=== PATIENT | male | born 1990 | race Caucasian/White ===

== ENCOUNTER 2018-02-06 22:19 | Emergency (ER) | payer OTHER ==
[2018-02-07 00:15] LABS: ABS Basophils 0 10^3/ul (0-0.2); ABS Lymphocytes 3.3 10^3/ul (1.0-4.8); ABS Monocytes 0.6 10^3/ul (0-0.8); ABS Neutrophils 3.2 10^3/ul (1.5-7.7); ABS Nucleated RBC 0 10^3/ul; Eosinophil % 12.1 % (0-6); Hematocrit 44 % (42-52); Hemoglobin 14.7 g/dl (14.0-18.0); Lymphocyte % 40.4 % (25-47); Mean Corpuscular HGB Conc 34 g/dl (31-36); Mean Corpuscular Hemoglobin 30 pg (27-31); Mean Corpuscular Volume 88 fL (80-94); Mean Platelet Volume 8.4 um3 (7.4-10.4); Nucleated Red Blood Cells % 0.1; Platelet Count 181 10^3/ul (150-450); Red Blood Count 4.93 10^6/ul (4.00-5.40); Red Cell Distribution Width 13 % (10.5-15)
[2018-02-07 00:35] LABS: EGFR Non-African American 72.3 (>60)
--- NOTE | 2018-02-07 00:51 | ED ---
GI/ HPI - HPI Summary HPI Summary: 27-year-old male presents with abdominal pain for the past couple months. He states he has intermittent bowel pain. He states it mostly happens after he lifts objects. He states he feels sometimes a small bulge in the area. No fevers. No nausea or vomiting. No diarrhea no constipation. He also admits occasional testicular pain. He denies any testicular pain at this time. He states that his veins feels prominently near his testicles. No abnormal penile discharge. No urinary symptoms. - History of Current Complaint Chief Complaint: EDAbdPain Time Seen by Provider: 02/06/18 23:49 Stated Complaint: RT FLANK PAIN Pain Intensity: 5 - Allergy/Home Medications Allergies/Adverse Reactions: Allergies Allergy/AdvReac Type Severity Reaction Status Date / Time No Known Allergies Allergy Verified 02/06/18 22:32 PMH/Surg Hx/FS Hx/Imm Hx Endocrine/Hematology History: Denies: Hx Anticoagulant Therapy Respiratory History: Denies: Hx Asthma Infectious Disease History: No Infectious Disease History: Denies: Traveled Outside the in Last 30 Days - Family History Known Family History: Negative: Diabetes - Social History Occupation: Employed Full-time Substance Use Type: Reports: None Review of Systems Negative: Fever Negative: Chest Pain Negative: Shortness Of Breath Positive: Abdominal Pain All Other Systems Reviewed And Are Negative: Yes Physical Exam Triage Information Reviewed: Yes Vital Signs On Initial Exam: Initial Vitals Temp Pulse Resp BP Pulse Ox 97.7 F 70 16 121/67 99 02/06/18 22:29 02/06/18 22:29 02/06/18 22:29 02/06/18 22:29 02/06/18 22:29 Vital Signs Reviewed: Yes Appearance: Positive: Well-Appearing Skin: Positive: Warm, Dry Head/Face: Positive: Normal Head/Face Inspection Eyes: Positive: Normal, EOMI, ANTHONY, Conjunctiva Clear ENT: Positive: Normal ENT inspection, Pharynx normal, TMs normal Respiratory/Lung Sounds: Positive: Clear to Auscultation, Breath Sounds Present Cardiovascular: Positive: Normal, RRR Abdomen Description: Positive: Nontender, Soft, Other: - umbilicial hernia felt when clenches abdominal muscles Bowel Sounds: Positive: Present Musculoskeletal: Positive: Normal Neurological: Positive: Normal Psychiatric: Positive: Normal Diagnostics - Vital Signs Vital Signs Temp Pulse Resp BP Pulse Ox 02/06/18 22:29 97.7 F 70 16 121/67 99 - Laboratory Lab Results: Lab Results 02/07/18 02/07/18 Range/Units 00:08 00:08 WBC 8.0 (3.5-10.8) 10^3/ul RBC 4.93 (4.00-5.40) 10^6/ul Hgb 14.7 (14.0-18.0) g/dl Hct 44 (42-52) % MCV 88 (80-94) fL MCH 30 (27-31) pg MCHC 34 (31-36) g/dl RDW 13 (10.5-15) % Plt Count 181 (150-450) 10^3/ul MPV 8.4 (7.4-10.4) um3 Neut % (Auto) 40.4 (38-83) % Lymph % (Auto) 40.4 (25-47) % Keith % (Auto) 6.9 (0-7) % Eos % (Auto) 12.1 H (0-6) % Baso % (Auto) 0.2 (0-2) % Absolute Neuts (auto) 3.2 (1.5-7.7) 10^3/ul Absolute Lymphs (auto) 3.3 (1.0-4.8) 10^3/ul Absolute Monos (auto) 0.6 (0-0.8) 10^3/ul Absolute Eos (auto) 1.0 H (0-0.6) 10^3/ul Absolute Basos (auto) 0 (0-0.2) 10^3/ul Absolute Nucleated RBC 0 10^3/ul Nucleated RBC % 0.1 Sodium 139 (135-145) mmol/L Potassium 3.9 (3.5-5.0) mmol/L Chloride 106 (101-111) mmol/L Carbon Dioxide 28 (22-32) mmol/L Anion Gap 5 (2-11) mmol/L BUN 15 (6-24) mg/dL Creatinine 1.19 H (0.67-1.17) mg/dL Est GFR ( Amer) 87.5 (>60) Est GFR (Non-Af Amer) 72.3 (>60) BUN/Creatinine Ratio 12.6 (8-20) Glucose 97 (70-100) mg/dL Calcium 9.3 (8.6-10.3) mg/dL Total Bilirubin 0.40 (0.2-1.0) mg/dL AST 21 (13-39) U/L ALT 18 (7-52) U/L Alkaline Phosphatase 105 H (34-104) U/L C-Reactive Protein < 1.00 (<8.01) mg/L Total Protein 6.5 (6.4-8.9) g/dL Albumin 4.3 (3.2-5.2) g/dL Globulin 2.2 (2-4) g/dL Albumin/Globulin Ratio 2.0 (1-3) Lipase 18 (11.0-82.0) U/L Result Diagrams: 02/07/18 00:08 02/07/18 00:08 Lab Statement: Any lab studies that have been ordered have been reviewed, and results considered in the medical decision making process. GIGU Course/Dx - Course Course Of Treatment: 27-year-old male presents with abdominal pain for the past couple months. He states he has intermittent bowel pain. He states it mostly happens after he lifts objects. He states he feels sometimes a small bulge in the area. No fevers. No nausea or vomiting. No diarrhea no constipation. He also admits occasional testicular pain. He denies any testicular pain at this time. He states that his veins feels prominently near his testicles. No abnormal penile discharge. No urinary symptoms. On exam nontender abdomen. When clenches abdominal muscles while sitting up do feel a potential umbilical hernia. Labs within normal limits. We will discharge with follow-up with surgery. Told to use caution when lifting objects. Told to develop testicular pain should return to ED. Patient understands agrees with plan. - Diagnoses Differential Diagnoses - Male: Gastroenteritis (Viral), Urinary Tract Infection , Other - umblicial hernia Provider Diagnoses: Abdominal pain Discharge - Sign-Out/Discharge Documenting (check all that apply): Patient Departure - Discharge Plan Condition: Good Disposition: HOME Patient Education Materials: Umbilical Hernia (ED) Forms: *Work Release Referrals: Abdoulaye Rosales MD [Medical Doctor] - Additional Instructions: on exam appear to have umbilical hernia can follow up with surgery take tyenlol or ibuprofen for pain Return to ED if develop any new or worsening symptoms - Billing Disposition and Condition Condition: GOOD Disposition: Home
[2018-02-07 01:13] VITALS: BP 112/60
== END 2018-02-07 00:58 | disposition home or self-care (01) ==
LOC: ED 22:19
DX: R10.9 Unspecified abdominal pain (principal); N50.819 Testicular pain, unspecified
CPT/HCPCS: 36415; 80053; 83690; 85025; 86140; 99282

== ENCOUNTER 2018-04-12 10:26 | Emergency (ER) | payer OTHER ==
[2018-04-12 11:15] VITALS: BP 123/80
[2018-04-12] MEDS ORDERED: Acetaminophen TAB* 325 MG PO ONE (11:32)
--- NOTE | 2018-04-12 11:34 | UC ---
Lower Extremity/Ankle HPI - HPI Summary HPI Summary: Stepped off a curb at approximately 01:30 am into a pothole, inverting his right ankle. Increased swelling and difficulty weight bearing today. 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 - History of Current Complaint Chief Complaint: UCLowerExtremity Stated Complaint: ANKLE INJURY Time Seen by Provider: 04/12/18 11:25 Hx Obtained From: Patient Onset/Duration: Sudden Onset, Lasting Hours Severity Initially: Moderate Severity Currently: Moderate Pain Intensity: 8 Aggravating Factor(s): Standing, Ambulation Alleviating Factor(s): Elevation - Risk Factors Gout Risk Factors: Negative DVT Risk Factors: Negative Septic Arthritis Risk Factor: Negative - Allergies/Home Medications Allergies/Adverse Reactions: Allergies Allergy/AdvReac Type Severity Reaction Status Date / Time No Known Allergies Allergy Verified 04/12/18 11:15 Home Medications: Home Medications NK [No Home Medications Reported] 04/12/18 [History Confirmed 04/12/18] PMH/Surg Hx/FS Hx/Imm Hx Previously Healthy: Yes Other History Of: Negative For: Anticoagulant Therapy - Surgical History Surgical History: None - Family History Known Family History: Positive: Non-Contributory Negative: Diabetes Family History: Parents living and healthy. - Social History Occupation: Employed Full-time Lives: Alone Alcohol Use: Occasionally Substance Use Type: None Smoking Status (MU): Never Smoked Tobacco Review of Systems All Other Systems Reviewed And Are Negative: Yes Constitutional: Positive: Negative Skin: Positive: Negative Eyes: Positive: Negative ENT: Positive: Negative Respiratory: Positive: Negative Cardiovascular: Positive: Negative Gastrointestinal: Positive: Negative Genitourinary: Positive: Negative Motor: Positive: Negative Neurovascular: Positive: Negative Musculoskeletal: Positive: Arthralgia Neurological: Positive: Negative Psychological: Positive: Negative Is Patient Immunocompromised?: No Physical Exam Triage Information Reviewed: Yes Appearance: Well-Appearing, Pain Distress - moderate. Vital Signs: Initial Vital Signs Temp 99.2 F 04/12/18 11:11 Pulse 93 04/12/18 11:11 Resp 18 04/12/18 11:11 BP 123/80 04/12/18 11:11 Pulse Ox 100 04/12/18 11:11 ENT: Positive: Normal ENT inspection Respiratory: Positive: Lungs clear, Normal breath sounds Cardiovascular: Positive: RRR, No Murmur Musculoskeletal Exam: Other - Moderate swelling right lateral malleolus with tenderness distal fibula. Musculoskeletal: Positive: ROM Limited @ - right ankle with decreased dorsiflexion Neurological Exam: Normal Neurological: Positive: Alert, Muscle Tone Normal Psychological Exam: Normal Skin Exam: Normal Diagnostics - Laboratory Diagnostic Studies Completed/Ordered: right ankle xray with possible non- displaced avulstion of lateral malleolus per MH. Awaiting radiology reading. Lower Extremity Course/Dx - Course Course Of Treatment: CAM walker and crutches, ice, elevation, follow up with orthopedics. - Differential Dx/Diagnosis Differential Diagnosis/HQI/PQRI: Sprain, Strain Provider Diagnosis: Strain of ankle, right Discharge - Sign-Out/Discharge Documenting (check all that apply): Patient Departure All imaging exams completed and their final reports reviewed: No - Discharge Plan Condition: Stable Disposition: HOME Patient Education Materials: Ankle Sprain (ED) Forms: *Work Release Referrals: No Primary Care Phys,NOPCP [Primary Care Provider] - Malik Fernandes MD [Medical Doctor] - Additional Instructions: we will call you with the final xray report. Use ibuprofen 800mg three times daily for pain, take with food. Continue applying ice and keep your leg elevated. You have a referral to [facility] orthopedics --please call Saturday morning to arrange a visit. Dr. Fernandes is vice president mission integration today, but you will likely be scheduled with one of the practitioners who focuses on ankle and foot problems. - Billing Disposition and Condition Condition: STABLE Disposition: Home
--- NOTE | 2018-04-12 14:40 | UC ---
- Progress Note Progress Note: Dr. Leahy read the xray as no fracture. I called Enzo to advise him of this. Plan remains unchainged with use of CAM walker, crutches and orthopedic follow up. Course/Dx - Diagnoses Provider Diagnoses: Strain of ankle, right Discharge - Sign-Out/Discharge Documenting (check all that apply): Patient Departure All imaging exams completed and their final reports reviewed: No - Discharge Plan Condition: Stable Disposition: HOME Patient Education Materials: Ankle Sprain (ED) Forms: *Work Release Referrals: Malik Fernandes MD [Medical Doctor] - No Primary Care Phys,NOPCP [Primary Care Provider] - Additional Instructions: we will call you with the final xray report. Use ibuprofen 800mg three times daily for pain, take with food. Continue applying ice and keep your leg elevated. You have a referral to [facility] orthopedics --please call Saturday morning to arrange a visit. Dr. Fernandes is documentation clerk today, but you will likely be scheduled with one of the practitioners who focuses on ankle and foot problems. - Billing Disposition and Condition Condition: STABLE Disposition: Home
== END 2018-04-12 12:45 | disposition home or self-care (01) ==
LOC: UCEAST 10:26
DX: S96.911A Strain of unspecified muscle and tendon at ankle and foot level, right foot, initial encounter (principal); X50.1XXA Overexertion from prolonged static or awkward postures, initial encounter; Y92.9 Unspecified place or not applicable
CPT/HCPCS: 99213; A9270-GY; G0463